=== PATIENT | male | born 1960 | race Caucasian/White ===

== ENCOUNTER 2017-10-14 14:11 | Emergency (ER) | END 2017-10-14 18:42 | disposition left against medical advice (07) ==

== ENCOUNTER 2019-08-07 01:40 | Emergency (ER) | payer OTHER ==
[~2019-08-07] VITALS: Ht 172.7 cm; Wt 65.0 kg
[~2019-08-07 01:40] MED LIST: AMLO5TAB4 PO; ASPI-817 PO; BUPR150T6 PO; PROP40TA4 PO; QUET300T2 PO; ZOLP5TAB7 PO
[2019-08-07 01:51] VITALS: Ht 172.7 cm; Wt 65.0 kg
[2019-08-07 03:23] VITALS: BP 138/89; PULSE 89; RESP 18
== END 2019-08-07 03:23 | disposition home or self-care (01) ==
LOC: E/R 01:40
DX: R53.1 Weakness (principal); I10 Essential (primary) hypertension; F17.210 Nicotine dependence, cigarettes, uncomplicated; R51 Headache; M79.601 Pain in right arm; Z79.82 Long term (current) use of aspirin; Z59.0 Homelessness
CPT/HCPCS: 36415; 70450; 80048; 85025; 85610; 85730; Z7502